=== PATIENT | male | born 1960 | race Caucasian/White ===

== ENCOUNTER 2017-05-02 22:12 | Inpatient (IN) | payer OTHER ==
[~2017-05-02] VITALS: Ht 170.2 cm; Wt 80.0 kg
[~2017-05-02 22:12] MED LIST: ADULT LOW DOSE81 MG PO; BACLOFEN10 MG PO; GABAPENTIN600 M1 PO; GLU10XL PO; IBUPROFEN400 MG PO; METFORMIN HCL500 MG PO; VASOTEC20 MG; VITAMIN D32000 I2 PO
[2017-05-02 22:39] VITALS: Ht 170.2 cm; Wt 80.0 kg
[2017-05-02 23:04] LABS: BASOPHIL % 0.3 % (0-2); PLATELET COUNT 163 x10^3mcL (130-400); RED CELL DISTRIBUTION WIDTH 13.6 % (11.5-14.5)
[2017-05-02 23:26] LABS: CALCIUM 9.3 mg/dL (8.5-10.1); CARBON DIOXIDE 29.3 mmol/L (21-32); CHLORIDE SERUM 104 mmol/L (98-107); CREATININE SERUM 0.9 mg/dL (0.7-1.3); GFR1 > 60 mL/min; GLUCOSE SERUM 163 mg/dL (74-106); SODIUM SERUM 143 mmol/L (136-145)
[2017-05-02 23:30] LABS: ALBUMIN 4.2 g/dL (3.4-5.0); ALKALINE PHOSPHATASE 91 U/L (46-116); ALT/SGPT 26 U/L (16-63); AST/SGOT 23 U/L (15-37); BILIRUBIN TOTAL 0.4 mg/dL (0.20-1.00); TOTAL PROTEIN, SERUM 7.7 g/dL (6.4-8.2)
[2017-05-03 01:19] VITALS: BP 153/68
[2017-05-03 01:20] VITALS: BP 153/68
[2017-05-03 01:48] LABS: CHOLESTEROL/HDL RATIO 2.6; MAGNESIUM 1.9 mg/dL (1.8-2.4); PHOSPHOROUS 3.3 mg/dL (2.5-4.9)
[2017-05-03 01:54] LABS: FREE T4 0.83 ng/dL (0.76-1.46); FREE THYROXINE INDEX 2.2 ug/dL (1.4-4.5); T4(THYROXINE) 6.6 ug/dL (4.7-13.3)
[2017-05-03 05:26] VITALS: BP 145/77
[2017-05-03 06:17] LABS: microscopic required? NO
[2017-05-03 06:51] LABS: BASOPHIL % 0.1 % (0-2); PLATELET COUNT 142 x10^3mcL (130-400); RED CELL DISTRIBUTION WIDTH 13.2 % (11.5-14.5)
[2017-05-03 06:56] LABS: CALCIUM 8.8 mg/dL (8.5-10.1); CARBON DIOXIDE 29.7 mmol/L (21-32); CHLORIDE SERUM 104 mmol/L (98-107); CREATININE SERUM 0.9 mg/dL (0.7-1.3); GFR1 > 60 mL/min; GLUCOSE SERUM 157 mg/dL (74-106); MAGNESIUM 1.6 mg/dL (1.8-2.4); PHOSPHOROUS 3.3 mg/dL (2.5-4.9); POTASSIUM SERUM 4.2 mmol/L (3.5-5.1); SODIUM SERUM 142 mmol/L (136-145)
[2017-05-03 07:42] LABS: T3 TOTAL 1.02 ng/mL
[2017-05-03 07:52] LABS: urine erythrocyte NEGATIVE (NEGATIVE)
[2017-05-03 08:03] LABS: AMPHETAMINE QUAL UR NONE DETECTED (NEG <=1000)
[2017-05-03] MEDS ORDERED: LEVAQUIN750 MG PO (09:16)
[2017-05-03] MEDS ORDERED: LAC PO (09:17)
[2017-05-03 09:44] VITALS: BP 157/81
[2017-05-03 13:26] VITALS: BP 146/89
== END 2017-05-03 15:11 | disposition home or self-care (01) | DRG 347 ==
LOC: ED 22:12 → DU 05-03 00:35
PROVIDERS: Emergency Medicine; Family Medicine Sports Medicine
DX: M51.36 Other intervertebral disc degeneration, lumbar region (principal); N17.0 Acute kidney failure with tubular necrosis; E11.42 Type 2 diabetes mellitus with diabetic polyneuropathy; E11.51 Type 2 diabetes mellitus with diabetic peripheral angiopathy without gangrene; N12 Tubulo-interstitial nephritis, not specified as acute or chronic; B19.10 Unspecified viral hepatitis B without hepatic coma; M51.46 Schmorl's nodes, lumbar region; N28.1 Cyst of kidney, acquired; E83.42 Hypomagnesemia; I16.0 Hypertensive urgency; I10 Essential (primary) hypertension; K40.90 Unilateral inguinal hernia, without obstruction or gangrene, not specified as recurrent; E78.5 Hyperlipidemia, unspecified; Z68.27 Body mass index [BMI] 27.0-27.9, adult; Z79.84 Long term (current) use of oral hypoglycemic drugs; Z79.82 Long term (current) use of aspirin; Z79.1 Long term (current) use of non-steroidal anti-inflammatories (NSAID)
CPT/HCPCS: 83880; 84439; J1100; J1170; J1885; J1956; J2405; J3010; J7030

== ENCOUNTER 2017-10-17 17:17 | Inpatient (IN) | payer OTHER ==
[~2017-10-17] VITALS: Ht 170.2 cm; Wt 81.6 kg
[~2017-10-17 17:17] MED LIST changes: +LAC PO; +LEVAQUIN750 MG PO
[2017-10-17 17:20] VITALS: Ht 170.2 cm; Wt 81.6 kg
[2017-10-17 18:17] LABS: CALCIUM 7.5 mg/dL (8.5-10.1); CARBON DIOXIDE 19.1 mmol/L (21-32); CREATININE SERUM 2.2 mg/dL (0.7-1.3)
[2017-10-17 18:22] LABS: BASOPHIL % 0.4 % (0-2); BILIRUBIN TOTAL 0.2 mg/dL (0.20-1.00); MAGNESIUM 1.8 mg/dL (1.8-2.4); RED CELL DISTRIBUTION WIDTH 13.3 % (11.5-14.5)
[2017-10-17 18:27] LABS: ALBUMIN 2.7 g/dL (3.4-5.0); TOTAL PROTEIN, SERUM 5.1 g/dL (6.4-8.2)
[2017-10-17 18:29] LABS: PLATELET COUNT 99 x10^3mcL (130-400)
[2017-10-17] MEDS ORDERED: ENALAPRIL MALEA20 MG PO (20:23)
[2017-10-17 20:28] LABS: PHOSPHOROUS 4.1 mg/dL (2.5-4.9)
[2017-10-17 20:34] LABS: T3 TOTAL 0.68 ng/mL
[2017-10-17 20:35] LABS: FREE T4 0.54 ng/dL (0.76-1.46)
[2017-10-17 20:38] LABS: CHOLESTEROL/HDL RATIO 3.1; FREE THYROXINE INDEX 0.8 ug/dL (1.4-4.5); T4(THYROXINE) 2.2 ug/dL (4.7-13.3)
[2017-10-17 20:43] LABS: IRON 68 ug/dL (65-170)
[2017-10-17 20:44] LABS: TOTAL IRON BINDING CAPACITY 215 ug/dL (250-450)
[2017-10-17 20:49] LABS: RED BLOOD CELLS 2.35 M/mm3 (4.52-5.90)
[2017-10-17] MEDS ORDERED: ASPIR 8181 MG PO (22:34)
[2017-10-17 23:53] VITALS: BP 126/76
[2017-10-18 01:36] LABS: BASOPHIL % 0.3 % (0-2); RED CELL DISTRIBUTION WIDTH 13.6 % (11.5-14.5)
[2017-10-18 01:37] LABS: PLATELET COUNT 101 x10^3mcL (130-400)
[2017-10-18 03:42] VITALS: BP 143/75
[2017-10-18 05:58] LABS: BASOPHIL % 0.2 % (0-2); PLATELET COUNT 96 x10^3mcL (130-400); RED CELL DISTRIBUTION WIDTH 13.1 % (11.5-14.5)
[2017-10-18 06:11] LABS: CALCIUM 8.6 mg/dL (8.5-10.1); CARBON DIOXIDE 24.5 mmol/L (21-32); CREATININE SERUM 1.5 mg/dL (0.7-1.3); MAGNESIUM 1.9 mg/dL (1.8-2.4); PHOSPHOROUS 3.5 mg/dL (2.5-4.9); POTASSIUM SERUM 4.6 mmol/L (3.5-5.1)
[2017-10-18 07:30] VITALS: BP 130/71
[2017-10-18 12:00] VITALS: BP 125/81
[2017-10-18 16:06] VITALS: BP 124/72
[2017-10-18 20:10] VITALS: BP 131/73
[2017-10-19 05:36] VITALS: BP 136/71
[2017-10-19 06:14] LABS: CALCIUM 7.8 mg/dL (8.5-10.1); CARBON DIOXIDE 23.2 mmol/L (21-32); CHLORIDE SERUM 109 mmol/L (98-107); CREATININE SERUM 0.9 mg/dL (0.7-1.3); GFR1 > 60 mL/min; GLUCOSE SERUM 66 mg/dL (74-106); SODIUM SERUM 142 mmol/L (136-145)
[2017-10-19 07:40] LABS: BASOPHIL % 0.4 % (0-2); PLATELET COUNT 102 x10^3mcL (130-400); RED CELL DISTRIBUTION WIDTH 13.1 % (11.5-14.5)
[2017-10-19 08:52] VITALS: BP 125/71
[2017-10-19 12:51] VITALS: BP 157/78
[2017-10-19 13:08] VITALS: BP 157/78
== END 2017-10-19 14:06 | disposition home or self-care (01) | DRG 661 ==
LOC: ED 17:17 → DU 19:01 → ED 19:01 → DU 20:01 → IW 20:01 → DU 10-18 15:59
PROVIDERS: Emergency Medicine; Internal Medicine
PROC: 30233N1 Transfusion of Nonautologous Red Blood Cells into Peripheral Vein, Percutaneous Approach (ICD-10-PCS; principal; 2017-10-17)
DX: D69.59 Other secondary thrombocytopenia (principal); N17.0 Acute kidney failure with tubular necrosis; K85.90 Acute pancreatitis without necrosis or infection, unspecified; E83.51 Hypocalcemia; E11.51 Type 2 diabetes mellitus with diabetic peripheral angiopathy without gangrene; E11.40 Type 2 diabetes mellitus with diabetic neuropathy, unspecified; E88.09 Other disorders of plasma-protein metabolism, not elsewhere classified; T67.0XXA Heatstroke and sunstroke, initial encounter; T67.1XXA Heat syncope, initial encounter; I95.1 Orthostatic hypotension; E86.0 Dehydration; D64.9 Anemia, unspecified; I10 Essential (primary) hypertension; Z68.28 Body mass index [BMI] 28.0-28.9, adult; Z98.1 Arthrodesis status; Z79.84 Long term (current) use of oral hypoglycemic drugs; X30.XXXA Exposure to excessive natural heat, initial encounter; Y92.830 Public park as the place of occurrence of the external cause
CPT/HCPCS: 83880; 84439; J1815; J2405; J2765; J3490; J7030; J7040; P9016; P9047; Q0092

== ENCOUNTER 2018-02-25 23:51 | Inpatient (IN) | payer OTHER ==
[~2018-02-25] VITALS: Ht 170.2 cm; Wt 84.5 kg
[~2018-02-25 23:51] MED LIST changes: +ASPIR 8181 MG PO; +ENALAPRIL MALEA20 MG PO; -GLU10XL PO
[2018-02-26] VITALS: Ht 170.2 cm; Wt 84.5 kg
[2018-02-26 01:22] LABS: ALBUMIN 3.9 g/dL (3.4-5.0); BILIRUBIN TOTAL 0.2 mg/dL (0.20-1.00); CALCIUM 9.4 mg/dL (8.5-10.1); CARBON DIOXIDE 21.9 mmol/L (21-32); POTASSIUM SERUM 4.6 mmol/L (3.5-5.1); TOTAL PROTEIN, SERUM 7.2 g/dL (6.4-8.2)
[2018-02-26 01:29] LABS: BASOPHIL % 0.2 % (0-2); PLATELET COUNT 148 x10^3mcL (130-400); RED CELL DISTRIBUTION WIDTH 13.2 % (11.5-14.5)
[2018-02-26 02:10] LABS: T3 TOTAL 0.65 ng/mL
[2018-02-26 02:11] LABS: FREE T4 0.69 ng/dL (0.76-1.46); FREE THYROXINE INDEX 1.7 ug/dL (1.4-4.5); T4(THYROXINE) 4.9 ug/dL (4.7-13.3)
[2018-02-26 02:47] VITALS: BP 104/71
[2018-02-26 02:48] LABS: CHOLESTEROL/HDL RATIO 3.6; MAGNESIUM 1.7 mg/dL (1.8-2.4); PHOSPHOROUS 4.9 mg/dL (2.5-4.9)
[2018-02-26 05:01] VITALS: BP 116/71
[2018-02-26 08:33] VITALS: BP 129/78
[2018-02-26 09:27] LABS: microscopic required? NO
[2018-02-26 09:38] LABS: urine erythrocyte NEGATIVE (NEGATIVE)
[2018-02-26 09:48] LABS: AMPHETAMINE QUAL UR NONE DETECTED (See below)
[2018-02-26 17:13] VITALS: BP 121/72
[2018-02-26 21:01] VITALS: BP 143/84
[2018-02-27 05:48] VITALS: BP 123/78
[2018-02-27 06:43] LABS: BASOPHIL % 0.5 % (0-2); PLATELET COUNT 134 x10^3mcL (130-400); RED CELL DISTRIBUTION WIDTH 12.8 % (11.5-14.5)
[2018-02-27 07:27] VITALS: BP 129/93
[2018-02-27 08:11] LABS: CALCIUM 8.6 mg/dL (8.5-10.1); CARBON DIOXIDE 25.2 mmol/L (21-32); CREATININE SERUM 1.4 mg/dL (0.7-1.3); POTASSIUM SERUM 4.6 mmol/L (3.5-5.1)
[2018-02-27] MEDS ORDERED: GLUCOTROL5 MG PO (12:46)
[2018-02-27 13:05] VITALS: BP 129/93
[2018-02-27] MEDS ORDERED: GLU10XL PO (13:09)
== END 2018-02-27 13:30 | disposition home or self-care (01) | DRG 420 ==
LOC: ED 23:51 → MU 02-26 01:32
PROVIDERS: Emergency Medicine; Internal Medicine
DX: E11.649 Type 2 diabetes mellitus with hypoglycemia without coma (principal); N17.0 Acute kidney failure with tubular necrosis; G93.41 Metabolic encephalopathy; E11.40 Type 2 diabetes mellitus with diabetic neuropathy, unspecified; E83.42 Hypomagnesemia; D64.9 Anemia, unspecified; F12.10 Cannabis abuse, uncomplicated; Z79.84 Long term (current) use of oral hypoglycemic drugs; T38.3X5A Adverse effect of insulin and oral hypoglycemic [antidiabetic] drugs, initial encounter; Z68.28 Body mass index [BMI] 28.0-28.9, adult
CPT/HCPCS: 82962; 84439; G0378; J3490; J7030; J7042